=== PATIENT | female | born 1970 | race Caucasian/White ===

== ENCOUNTER 2018-01-12 14:07 | Day surgery (SDC) | payer OTHER ==
[~2018-01-12 14:07] MED LIST: LACTATED RINGER'S 1,000 ML IV
[2018-01-12 14:52] LABS: ADD MAN DIFF? NO
[2018-01-12 14:56] LABS: BASOPHILS % 0.3 % (0.0-2.0); EOSINOPHILS # 0.2 10^3/ul (0.0-0.5); EOSINOPHILS % 2.4 % (0.0-7.0); HEMATOCRIT 32.4 % (37.0-47.0); HEMOGLOBIN 10.8 g/dl (12.0-16.0); LYMPHOCYTES # 1.9 10^3/ul (0.8-2.9); LYMPHOCYTES % 29.5 % (15.0-51.0); MEAN CORPUSCULAR HEMOGLOBIN 30.1 pg (29.0-33.0); MEAN CORPUSCULAR HGB CONC 33.3 g/dl (32.0-37.0); MEAN CORPUSCULAR VOLUME 90.3 fl (82.0-101.0); MEAN PLATELET VOLUME 11.3 fl (7.4-10.4); MONOCYTE # 0.4 10^3/ul (0.3-0.9); MONOCYTES % 6.7 % (0.0-11.0); NEUTROPHIL # 3.9 10^3/ul (1.6-7.5); NEUTROPHILS % 60.8 % (39.0-77.0); PLATELET COUNT 295 10^3/UL (140-415); RED BLOOD COUNT 3.59 10^6/ul (4.20-5.40); RED CELL DISTRIBUTION WIDTH 12.6 % (11.5-14.5)
[2018-01-12 14:56] LABS: WHITE BLOOD COUNT 6.4 10^3/ul (4.8-10.8)
[2018-01-12 15:13] LABS: ADD UMIC NO; UR ASCORBIC ACID 40 mg/dL (NEGATIVE); UR BILIRUBIN (Dip) NEGATIVE (NEGATIVE); UR BLOOD (Dip) NEGATIVE (NEGATIVE); UR CLARITY CLEAR (CLEAR); UR COLOR YELLOW (YELLOW); UR GLUCOSE (Dip) NEGATIVE (NEGATIVE); UR KETONES (Dip) TRACE mg/dL (NEGATIVE); UR LEUKOCYTE ESTERASE (Dip) NEGATIVE Leu/ul (NEGATIVE); UR NITRITE (Dip) NEGATIVE (NEGATIVE); UR SPECIFIC GRAVITY (Dip) 1.017 (1.003-1.030); UR TOTAL PROTEIN (Dip) NEGATIVE (NEGATIVE); UR UROBILINOGEN (Dip) NEGATIVE (NEGATIVE)
[2018-01-12 15:17] LABS: INR 0.98; PROTIME 13.1 Sec (11.9-14.9)
[2018-01-12 15:18] LABS: PARTIAL THROMBOPLASTIN TIME 29.6 Sec (23.0-35.0)
[2018-01-12 15:25] LABS: ALANINE AMINOTRANSFERASE 24 IU/L (13-69); ALBUMIN 4.2 g/dl (3.3-4.9); ALKALINE PHOSPHATASE 40 IU/L (42-121); ANION GAP 13 (8-16); ASPARTATE AMINO TRANSFERASE 21 IU/L (15-46); BILIRUBIN,INDIRECT 0.3 mg/dl (0-1.1); BILIRUBIN,TOTAL 0.3 mg/dl (0.2-1.3); BLOOD UREA NITROGEN 13 mg/dl (7-20); CALCIUM 8.5 mg/dl (8.4-10.2); CARBON DIOXIDE 24 mmol/L (21-31); CHLORIDE 107 mmol/L (97-110); CREATININE 0.65 mg/dl (0.44-1.00); GLUCOSE 79 mg/dl (70-220); POTASSIUM 3.7 mmol/L (3.5-5.1); SODIUM 140 mmol/L (135-144)
[2018-01-12] MEDS ORDERED: PROPOFOL 20 ML (16:17)
[2018-01-12] MEDS ORDERED: LIDOCAINE 1% (MDV) 20 ML INJ (16:17)
[2018-01-12] MEDS ORDERED: FENTAnyl 50 MCG/ML VIAL (16:17)
[2018-01-12] MEDS ORDERED: LABETALOL HCL 20MG INJ IV (16:30)
[2018-01-12] MEDS ORDERED: hydrALAzine 20 MG INJ IV (16:30)
[2018-01-12] MEDS ORDERED: HYDROmorphONE 1 MG/5 ML IV SYRINGE IV (18:00)
[2018-01-12] MEDS: HYDROmorphONE 1 MG/5 ML IV SYRINGE IV ×2 (18:14→18:21)
[2018-01-12] MEDS ORDERED: ONDANSETRON 4 MG INJ (18:36)
[2018-01-12] MEDS: DOXYCYCLINE 100 MG TAB PO (18:47)
[2018-01-12] MEDS ORDERED: ONDANSETRON 4 MG INJ IV (19:00)
== END 2018-01-12 19:45 | disposition home or self-care (01) ==
LOC: SDS 14:07
DX: N93.9 Abnormal uterine and vaginal bleeding, unspecified (principal)
CPT/HCPCS: 58558; 80053; 81003; 85025; 85610; 85730; 88305

== ENCOUNTER 2018-03-20 06:22 | Inpatient (IN) | payer OTHER ==
[2018-03-20] MEDS ORDERED: CEFAZOLIN 1 GM INJ (07:00)
[2018-03-20] MEDS ORDERED: PROPOFOL 20 ML (07:46)
[2018-03-20] MEDS ORDERED: morphine SULFATE/PF (10 MG/10 ML) INJ (07:46)
[2018-03-20] MEDS ORDERED: MIDAZOLAM 1 MG/ML 2 ML INJ (07:46)
[2018-03-20] MEDS ORDERED: FENTAnyl 50 MCG/ML VIAL (07:46)
[2018-03-20] MEDS ORDERED: LIDOCAINE 2% (SDV) 5 ML INJ (07:46)
[2018-03-20] MEDS ORDERED: ROCURONIUM 50 MG INJ (07:46)
[2018-03-20] MEDS ORDERED: NEOSTIGMINE 3 MG/3 ML SYRINGE (07:46)
[2018-03-20] MEDS ORDERED: GLYCOPYRROLATE 0.4 MG INJ (07:46)
[2018-03-20] MEDS ORDERED: DEXAMETHASONE 4 MG/ML 1 ML INJ (07:47)
[2018-03-20] MEDS ORDERED: ONDANSETRON 4 MG INJ (07:47)
[2018-03-20] MEDS ORDERED: HYDROmorphONE 1 MG/5 ML IV SYRINGE IV ×3 (11:00→11:24)
[2018-03-20] MEDS ORDERED: ONDANSETRON 4 MG INJ IV (11:00)
[2018-03-20] MEDS ORDERED: DIPHENHYDRAMINE 50 MG INJ IV (11:00)
[2018-03-20] MEDS ORDERED: METOCLOPRAMIDE 10 MG INJ IV (11:00)
[2018-03-20] MEDS ORDERED: FENTAnyl 50 MCG/ML VIAL IV ×2 (11:00)
[2018-03-20] MEDS ORDERED: MEPERIDINE 25 MG INJ IV (11:00)
[2018-03-20] MEDS: HYDROmorphONE 1 MG/5 ML IV SYRINGE IV (11:53)
[2018-03-20] MEDS: HYDROmorphONE 2 MG/ML SYG IV (13:52)
[2018-03-20] MEDS: DEXTROSE 5%-LR 1,000 ML IV ×3 (14:00→21:27)
[2018-03-20] MEDS ORDERED: HYDROCODONE/APAP (5/325) TAB PO (17:28)
[2018-03-20] MEDS: HYDROCODONE/APAP (5/325) TAB PO ×2 (18:09→23:36)
[2018-03-21] MEDS: DEXTROSE 5%-LR 1,000 ML IV ×4 (05:08→21:25)
[2018-03-21 06:22] LABS: ADD MAN DIFF? NO
[2018-03-21 06:23] LABS: WHITE BLOOD COUNT 14.4 10^3/ul (4.8-10.8)
[2018-03-21 06:23] LABS: HEMATOCRIT 35.1 % (37.0-47.0); HEMOGLOBIN 11.1 g/dl (12.0-16.0); LYMPHOCYTES # 0.7 10^3/ul (0.8-2.9); LYMPHOCYTES % 5.1 % (15.0-51.0); MEAN CORPUSCULAR HEMOGLOBIN 26.9 pg (29.0-33.0); MEAN CORPUSCULAR HGB CONC 31.6 g/dl (32.0-37.0); MEAN CORPUSCULAR VOLUME 85.2 fl (82.0-101.0); MEAN PLATELET VOLUME 11.7 fl (7.4-10.4); MONOCYTE # 0.9 10^3/ul (0.3-0.9); NEUTROPHIL # 12.7 10^3/ul (1.6-7.5); NEUTROPHILS % 88.2 % (39.0-77.0); PLATELET COUNT 295 10^3/UL (140-415); RED BLOOD COUNT 4.12 10^6/ul (4.20-5.40)
[2018-03-21] MEDS: BISACODYL 10 MG SUPP PR ×2 (06:46→17:27)
[2018-03-21] MEDS: MAGNESIUM HYDROXIDE 30ML CUP PO ×2 (06:46→17:26)
[2018-03-21 06:53] LABS: ALANINE AMINOTRANSFERASE 25 IU/L (13-69); ALBUMIN 3.9 g/dl (3.3-4.9); ALBUMIN/GLOBULIN RATIO 1.56; ALKALINE PHOSPHATASE 41 IU/L (42-121); ANION GAP 11 (5-13); ASPARTATE AMINO TRANSFERASE 24 IU/L (15-46); BILIRUBIN,INDIRECT 0.2 mg/dl (0-1.1); BILIRUBIN,TOTAL 0.2 mg/dl (0.2-1.3); BLOOD UREA NITROGEN 8 mg/dl (7-20); CALCIUM 8.1 mg/dl (8.4-10.2); CARBON DIOXIDE 27 mmol/L (21-31); CHLORIDE 99 mmol/L (97-110); CREATININE 0.64 mg/dl (0.44-1.00); Estimated GFR > 60 mL/min (>60); GLUCOSE 204 mg/dl (70-220); POTASSIUM 4.2 mmol/L (3.5-5.1); SODIUM 137 mmol/L (135-144); TOTAL PROTEIN 6.4 g/dl (6.1-8.1)
[2018-03-21] MEDS: IBUPROFEN 800 MG TAB PO (17:27)
[2018-03-21] MEDS: HYDROCODONE/APAP (5/325) TAB PO (18:54)
[2018-03-22 05:29] LABS: ADD MAN DIFF? NO
[2018-03-22] MEDS: DEXTROSE 5%-LR 1,000 ML IV (05:30)
[2018-03-22 05:32] LABS: WHITE BLOOD COUNT 13.4 10^3/ul (4.8-10.8)
[2018-03-22 05:32] LABS: BASOPHILS % 0.1 % (0.0-2.0); HEMATOCRIT 33.6 % (37.0-47.0); HEMOGLOBIN 10.6 g/dl (12.0-16.0); LYMPHOCYTES # 1.3 10^3/ul (0.8-2.9); LYMPHOCYTES % 9.7 % (15.0-51.0); MEAN CORPUSCULAR HEMOGLOBIN 27.5 pg (29.0-33.0); MEAN CORPUSCULAR HGB CONC 31.5 g/dl (32.0-37.0); MEAN CORPUSCULAR VOLUME 87.3 fl (82.0-101.0); MEAN PLATELET VOLUME 11.6 fl (7.4-10.4); MONOCYTE # 0.9 10^3/ul (0.3-0.9); MONOCYTES % 6.6 % (0.0-11.0); NEUTROPHIL # 11.1 10^3/ul (1.6-7.5); PLATELET COUNT 282 10^3/UL (140-415); RED BLOOD COUNT 3.85 10^6/ul (4.20-5.40); RED CELL DISTRIBUTION WIDTH 15.6 % (11.5-14.5)
[2018-03-22 05:49] LABS: ALANINE AMINOTRANSFERASE 22 IU/L (13-69); ALBUMIN 3.7 g/dl (3.3-4.9); ALBUMIN/GLOBULIN RATIO 1.23; ALKALINE PHOSPHATASE 46 IU/L (42-121); ANION GAP 10 (5-13); ASPARTATE AMINO TRANSFERASE 27 IU/L (15-46); BILIRUBIN,INDIRECT 0.4 mg/dl (0-1.1); BILIRUBIN,TOTAL 0.4 mg/dl (0.2-1.3); BLOOD UREA NITROGEN 9 mg/dl (7-20); CALCIUM 8.6 mg/dl (8.4-10.2); CARBON DIOXIDE 26 mmol/L (21-31); CHLORIDE 105 mmol/L (97-110); CREATININE 0.66 mg/dl (0.44-1.00); Estimated GFR > 60 mL/min (>60); GLUCOSE 118 mg/dl (70-220); POTASSIUM 4.1 mmol/L (3.5-5.1); SODIUM 141 mmol/L (135-144); TOTAL PROTEIN 6.7 g/dl (6.1-8.1)
[2018-03-22] MEDS: HYDROCODONE/APAP (5/325) TAB PO ×2 (07:27→16:12)
== END 2018-03-22 17:30 | disposition home or self-care (01) | DRG 743 ==
LOC: REC 06:22 → 2NE 12:35
PROVIDERS: Obstetrics & Gynecology
PROC: 0UT90ZL Resection of Uterus, Supracervical, Open Approach (ICD-10-PCS; principal; 2018-03-20 09:12)
PROC: 0UT20ZZ Resection of Bilateral Ovaries, Open Approach (ICD-10-PCS; 2018-03-20 09:12)
PROC: 0UT70ZZ Resection of Bilateral Fallopian Tubes, Open Approach (ICD-10-PCS; 2018-03-20 09:12)
PROC: 0USG0ZZ Reposition Vagina, Open Approach (ICD-10-PCS; 2018-03-20 09:12)
DX: D25.9 Leiomyoma of uterus, unspecified (principal); N94.6 Dysmenorrhea, unspecified; R10.2 Pelvic and perineal pain; N80.0 Endometriosis of uterus; N81.89 Other female genital prolapse
CPT/HCPCS: 80053; 84702; 85025; 86850; 86900; 86901; 88305